=== PATIENT | female | born 1960 | race Caucasian/White ===

== ENCOUNTER 2023-03-01 21:50 | Inpatient (IN) | payer OTHER ==
[~2023-03-01] VITALS: Ht 167.6 cm; Wt 74.8 kg
[2023-03-01] MEDS ORDERED: HYDROCODONE/APAP 5/325MG TABLET ONE (22:39)
[2023-03-01] MEDS ORDERED: HYDROCODONE/APAP 5/325MG TABLET PO ONE (23:00)
[2023-03-02] MEDS ORDERED: ACETAMINOPHEN 325 MG TABLET PO PRN (01:00)
[2023-03-02] MEDS ORDERED: ZOLPIDEM TARTRATE 5 MG TABLET PO PRN (01:00)
[2023-03-02] MEDS ORDERED: hydrALAZINE HCL IV 20 MG VIAL IV PRN ×2 (01:00)
[2023-03-02] MEDS ORDERED: Z GUARD REMEDY 4 OZ OINT TP PRN (01:00)
[2023-03-02] MEDS ORDERED: MAG HYDROX/AL HYDROX/SIMETH 30 ML UDC PO PRN (01:00)
[2023-03-02] MEDS ORDERED: ONDANSETRON HCL/PF 4 MG/2 ML VIAL IVP PRN (01:00)
[2023-03-02 01:07] LABS: BASOPHILS % (AUTO) 0.3 % (0.0-2.0); EOSINOPHILS % (AUTO) 0.1 % (0.0-6.0); HEMATOCRIT 33 % (33-45); HEMOGLOBIN 10.9 g/dL (11.5-14.8); LYMPHOCYTES # (AUTO) 1.2 K/uL (0.8-4.8); LYMPHOCYTES % (AUTO) 16.2 % (20.0-44.0); MEAN CORPUSCULAR HEMOGLOBIN 29 PG (26.0-33.0); MEAN CORPUSCULAR HGB CONC 34 g/dl (31.0-36.0); MEAN CORPUSCULAR VOLUME 86 fL (82-100); MONOCYTES # (AUTO) 0.5 K/uL (0.1-1.30); MONOCYTES % (AUTO) 6.6 % (2.0-12.0); NEUTROPHILS # (AUTO) 5.5 K/uL (1.8-8.9); NEUTROPHILS % (AUTO) 76.8 % (43.0-81.0); PLATELET COUNT (AUTO) 154 K/uL (150-450); RED CELL DISTRIBUTION WIDTH 14.2 % (11.5-15.0); WHITE BLOOD COUNT (AUTO) 7.1 K/uL (4.3-11.0)
[2023-03-02 01:20] LABS: INR 0.99 (0.91-1.10); PARTIAL THROMBOPLASTIN TIME 24.2 SEC (24.3-34.3); PROTHROMBIN TIME 10.5 SECS (9.2-11.1)
[2023-03-02 01:23] LABS: POTASSIUM 3.8 mmol/L (3.5-5.1)
[2023-03-02 03:30] VITALS: BP 131/83; TEMP 97.9; O2SAT 99
[2023-03-02 03:45] VITALS: BP 131/83; TEMP 97.9; O2SAT 99
[2023-03-02] MEDS ORDERED: BUPR100T6 PO (03:52)
[2023-03-02] MEDS ORDERED: CLOM75CA2 PO (03:52)
[2023-03-02] MEDS ORDERED: LEVO112T7 PO (03:52)
[2023-03-02] MEDS ORDERED: AMLO-212 PO (03:52)
[2023-03-02] MEDS ORDERED: TRAZ-182 PO (03:52)
[2023-03-02] MEDS ORDERED: PROP10TA10 PO (03:52)
[2023-03-02] MEDS ORDERED: MIRT-90 PO (03:52)
[2023-03-02] MEDS ORDERED: DIVA-78 PO (03:52)
[2023-03-02] MEDS: HYDROCODONE/APAP 5/325MG TABLET PO PRN (03:58)
[2023-03-02 07:30] VITALS: BP 131/76; TEMP 98.4; O2SAT 99
[2023-03-02] MEDS ORDERED: BUSP15TA3 PO (07:54)
[2023-03-02 08:35] LABS: BASOPHILS % (AUTO) 0.5 % (0.0-2.0); EOSINOPHILS # (AUTO) 0.1 K/uL (0.0-0.7); EOSINOPHILS % (AUTO) 1.3 % (0.0-6.0); HEMATOCRIT 34 % (33-45); HEMOGLOBIN 11.4 g/dL (11.5-14.8); LYMPHOCYTES # (AUTO) 1.5 K/uL (0.8-4.8); LYMPHOCYTES % (AUTO) 31.6 % (20.0-44.0); MEAN CORPUSCULAR HEMOGLOBIN 29 PG (26.0-33.0); MEAN CORPUSCULAR HGB CONC 33 g/dl (31.0-36.0); MEAN CORPUSCULAR VOLUME 86 fL (82-100); MONOCYTES # (AUTO) 0.4 K/uL (0.1-1.30); MONOCYTES % (AUTO) 8.1 % (2.0-12.0); NEUTROPHILS # (AUTO) 2.7 K/uL (1.8-8.9); NEUTROPHILS % (AUTO) 58.5 % (43.0-81.0); PLATELET COUNT (AUTO) 156 K/uL (150-450); RED BLOOD CELL COUNT(AUTO) 3.93 MIL/uL (4.0-5.2); RED CELL DISTRIBUTION WIDTH 14.2 % (11.5-15.0); WHITE BLOOD COUNT (AUTO) 4.7 K/uL (4.3-11.0)
[2023-03-02] MEDS: MORPHINE SULFATE INJ 2 MG/ML DISP.SYRIN IV PRN ×3 (08:39→21:58)
[2023-03-02 08:49] LABS: CREATININE 0.8 mg/dL (0.6-1.3); MAGNESIUM 2.4 mg/dL (1.8-2.4); PHOSPHORUS 3.8 mg/dL (2.5-4.9); POTASSIUM 3.3 mmol/L (3.5-5.1)
[2023-03-02 08:56] LABS: THYROID STIMULATING HORMONE 1.829 uIU/mL (0.358-3.74)
[2023-03-02] MEDS ORDERED: PANTOPRAZOLE 40 MG VIAL IV SCH (09:00)
[2023-03-02] MEDS ORDERED: POTASSIUM CHLORIDE 20 MEQ TAB.PRT.SR PO ONE (14:30)
[2023-03-02 16:00] VITALS: BP 116/68; TEMP 98.6; O2SAT 96
[2023-03-02] MEDS: IV NS 0.9% 1,000 ML IV PRN (17:39)
[2023-03-02] MEDS: ENOXAPARIN SODIUM 40 MG/0.4 ML DISP.SYRIN SQ SCH (19:39)
[2023-03-02 20:00] VITALS: BP_SYST 121; BP_SYST 142; BP_DIAS 72; TEMP 99; O2SAT 98
[2023-03-02] MEDS: TRAZODONE 50 MG TABLET PO SCH (21:58)
[2023-03-02] MEDS: MIRTAZAPINE 15 MG TABLET PO SCH (21:58)
[2023-03-02] MEDS: DIVALPROEX SODIUM 500 MG TABLET.DR PO SCH (22:06)
[2023-03-03] MEDS: MORPHINE SULFATE INJ 2 MG/ML DISP.SYRIN IV PRN (03:40)
[2023-03-03] MEDS: IV NS 0.9% 1,000 ML IV PRN (05:00)
[2023-03-03 07:35] LABS: BASOPHILS % (AUTO) 0.6 % (0.0-2.0); EOSINOPHILS # (AUTO) 0.1 K/uL (0.0-0.7); EOSINOPHILS % (AUTO) 3.1 % (0.0-6.0); HEMATOCRIT 34 % (33-45); HEMOGLOBIN 11.2 g/dL (11.5-14.8); LYMPHOCYTES # (AUTO) 1.4 K/uL (0.8-4.8); LYMPHOCYTES % (AUTO) 42.5 % (20.0-44.0); MEAN CORPUSCULAR HEMOGLOBIN 29 PG (26.0-33.0); MEAN CORPUSCULAR HGB CONC 33 g/dl (31.0-36.0); MEAN CORPUSCULAR VOLUME 88 fL (82-100); MONOCYTES # (AUTO) 0.3 K/uL (0.1-1.30); MONOCYTES % (AUTO) 8.9 % (2.0-12.0); NEUTROPHILS # (AUTO) 1.4 K/uL (1.8-8.9); NEUTROPHILS % (AUTO) 44.9 % (43.0-81.0); PLATELET COUNT (AUTO) 142 K/uL (150-450); RED BLOOD CELL COUNT(AUTO) 3.87 MIL/uL (4.0-5.2); RED CELL DISTRIBUTION WIDTH 14.6 % (11.5-15.0); WHITE BLOOD COUNT (AUTO) 3.2 K/uL (4.3-11.0)
[2023-03-03 07:58] LABS: CALCIUM, SERUM 8.4 mg/dL (8.5-10.1); CREATININE 0.8 mg/dL (0.6-1.3); MAGNESIUM 2.2 mg/dL (1.8-2.4); PHOSPHORUS 3.2 mg/dL (2.5-4.9); POTASSIUM 3.9 mmol/L (3.5-5.1)
[2023-03-03 08:00] VITALS: BP 143/77; TEMP 98.6; O2SAT 93
[2023-03-03] MEDS: LEVOTHYROXINE SODIUM 112 MCG TABLET PO SCH (08:23)
[2023-03-03] MEDS: BUPROPION XL 150 MG TAB.ER.24 PO SCH (08:24)
[2023-03-03] MEDS: busPIRone 5 MG TABLET PO SCH (08:25)
[2023-03-03] MEDS: AMLODIPINE BESYLATE 5 MG TABLET PO SCH (08:26)
[2023-03-03] MEDS: PROPRANOLOL HCL 10 MG TABLET PO SCH (08:26)
[2023-03-03] MEDS: HYDROCODONE/APAP 5/325MG TABLET PO PRN ×3 (08:27→20:25)
[2023-03-03] MEDS: PANTOPRAZOLE 40 MG TABLET.DR PO SCH (09:10)
[2023-03-03] MEDS: ENOXAPARIN SODIUM 40 MG/0.4 ML DISP.SYRIN SQ SCH (15:18)
[2023-03-03 16:00] VITALS: BP 122/69; TEMP 99.3; O2SAT 98
[2023-03-03] MEDS: DIVALPROEX SODIUM 500 MG TABLET.DR PO SCH (21:32)
[2023-03-03] MEDS: TRAZODONE 50 MG TABLET PO SCH (21:32)
[2023-03-03] MEDS: MIRTAZAPINE 15 MG TABLET PO SCH (21:33)
[2023-03-04] MEDS: HYDROCODONE/APAP 5/325MG TABLET PO PRN ×4 (00:39→19:04)
[2023-03-04] MEDS: IV NS 0.9% 1,000 ML IV PRN (03:44)
[2023-03-04 08:00] VITALS: BP_SYST 102; BP_SYST 135; BP_DIAS 64; BP_DIAS 75; TEMP 98.4; TEMP 98.8; O2SAT 100; O2SAT 98
[2023-03-04] MEDS: LEVOTHYROXINE SODIUM 112 MCG TABLET PO SCH (08:29)
[2023-03-04] MEDS: AMLODIPINE BESYLATE 5 MG TABLET PO SCH (08:30)
[2023-03-04] MEDS: BUPROPION XL 150 MG TAB.ER.24 PO SCH (08:30)
[2023-03-04] MEDS: busPIRone 5 MG TABLET PO SCH (08:30)
[2023-03-04] MEDS: PANTOPRAZOLE 40 MG TABLET.DR PO SCH (08:31)
[2023-03-04] MEDS: PROPRANOLOL HCL 10 MG TABLET PO SCH (08:31)
[2023-03-04] MEDS: ENOXAPARIN SODIUM 40 MG/0.4 ML DISP.SYRIN SQ SCH (14:44)
[2023-03-04 16:00] VITALS: BP_SYST 120; BP_SYST 141; BP_DIAS 62; BP_DIAS 81; TEMP 98; TEMP 99.1; O2SAT 98
[2023-03-04 20:00] VITALS: BP 142/82; TEMP 97.8; O2SAT 96
[2023-03-04] MEDS: MIRTAZAPINE 15 MG TABLET PO SCH (21:37)
[2023-03-04] MEDS: DIVALPROEX SODIUM 500 MG TABLET.DR PO SCH (21:37)
[2023-03-04] MEDS: TRAZODONE 50 MG TABLET PO SCH (21:38)
[2023-03-05] MEDS: HYDROCODONE/APAP 5/325MG TABLET PO PRN ×2 (03:30→08:15)
[2023-03-05] MEDS: LEVOTHYROXINE SODIUM 112 MCG TABLET PO SCH (07:32)
[2023-03-05] MEDS: busPIRone 5 MG TABLET PO SCH (08:15)
[2023-03-05] MEDS: BUPROPION XL 150 MG TAB.ER.24 PO SCH (08:15)
[2023-03-05] MEDS: PANTOPRAZOLE 40 MG TABLET.DR PO SCH (08:15)
[2023-03-05] MEDS: AMLODIPINE BESYLATE 5 MG TABLET PO SCH (08:16)
[2023-03-05] MEDS: PROPRANOLOL HCL 10 MG TABLET PO SCH (08:16)
[2023-03-05] MEDS: MAGNESIUM HYDROXIDE 30 ML UDC PO PRN (08:21)
[2023-03-05] MEDS ORDERED: oxyCODONE IR immediate release 5 MG PO PRN (11:00)
[2023-03-05] MEDS: oxyCODONE/APAP (5/325 MG) 1 UDTAB TABLET PO PRN ×2 (13:24→20:48)
[2023-03-05] MEDS: ENOXAPARIN SODIUM 40 MG/0.4 ML DISP.SYRIN SQ SCH (13:33)
[2023-03-05 20:00] VITALS: BP 151/81; TEMP 97.7; O2SAT 99
[2023-03-05] MEDS: MIRTAZAPINE 15 MG TABLET PO SCH (21:33)
[2023-03-05] MEDS: TRAZODONE 50 MG TABLET PO SCH (21:34)
[2023-03-05] MEDS: DIVALPROEX SODIUM 500 MG TABLET.DR PO SCH (21:34)
[2023-03-06] MEDS: oxyCODONE/APAP (5/325 MG) 1 UDTAB TABLET PO PRN ×2 (04:34→09:18)
[2023-03-06] MEDS: LEVOTHYROXINE SODIUM 112 MCG TABLET PO SCH (07:45)
[2023-03-06 08:00] VITALS: BP 126/80; TEMP 98.2; O2SAT 96
[2023-03-06] MEDS: PANTOPRAZOLE 40 MG TABLET.DR PO SCH (08:47)
[2023-03-06 08:48] VITALS: BP 138/86
[2023-03-06] MEDS: AMLODIPINE BESYLATE 5 MG TABLET PO SCH (08:48)
[2023-03-06] MEDS: PROPRANOLOL HCL 10 MG TABLET PO SCH (08:48)
[2023-03-06] MEDS: BUPROPION XL 150 MG TAB.ER.24 PO SCH (08:48)
[2023-03-06] MEDS: busPIRone 5 MG TABLET PO SCH (08:48)
[2023-03-06] MEDS: MAGNESIUM HYDROXIDE 30 ML UDC PO PRN (09:02)
== END 2023-03-06 12:20 | DRG 184 ==
LOC: ER 22:00 → MED 03-02 02:04
PROVIDERS: ADMIT Nurse Practitioner Family; ATTEND Nurse Practitioner Family
DX: S22.41XA Multiple fractures of ribs, right side, initial encounter for closed fracture (principal); E87.1 Hypo-osmolality and hyponatremia; J98.11 Atelectasis; W10.9XXA Fall (on) (from) unspecified stairs and steps, initial encounter; Y92.9 Unspecified place or not applicable; E78.5 Hyperlipidemia, unspecified; F32.A Depression, unspecified; I10 Essential (primary) hypertension; D64.9 Anemia, unspecified; Z88.0 Allergy status to penicillin; Z88.1 Allergy status to other antibiotic agents; E03.9 Hypothyroidism, unspecified; Z79.890 Hormone replacement therapy; Z79.899 Other long term (current) drug therapy; R26.9 Unspecified abnormalities of gait and mobility; R79.89 Other specified abnormal findings of blood chemistry
CPT/HCPCS: 36415; 71250-TC; 72192-TC; 80048-TC; 83735-TC; 84100-TC; 84443-TC; 85025-TC; 85730-TC; 97110-TC; 97116-TC; 97530-TC; A4223; C9113; G0378; J1650; J2270; J7030